=== PATIENT | male | born 1960 | race Caucasian/White ===

== ENCOUNTER 2018-05-20 12:25 | Emergency (ER) | payer SELFPAY ==
[2018-05-20 12:26] VITALS: BP 142/94; PULSE 69; RESP 16; TEMP 36.9; O2SAT 97; BMI 26.2
--- OUTSIDE RECORDS SUMMARY | 2018-05-20 12:59 | XMS RPT_ITS | Summary of Care ---
:1960 Demographics Address [address] [place] [address] [address] [place] [address] Mobile Phone Preferred Language Uruguayan Marital Status Unknown Restoration Affiliation Unknown Race Unknown Ethnic Group Unknown Author Organization [facility] Address [address] [place] [address] Care Team Providers Name Role Phone No, Physician Primary Care Provider Unavailable Reason for Visit Reason Comments Knee Pain left knee x 2 days. States its from his Gout. Said he normally is fine if he watches what he eats but he ate too much meat this week. Encounter Details Date Type Department Care Team Description 04/01/[address] [facility] Urgent Inocencia Das Acute idiopathic gout Care Bing Stratton MD of left knee (Primary [address]) [place], [place] [id number] Allergies Active Allergy Reactions Severity Noted Date Comments Penicillins Anaphylaxis High 03/27/2018 as of this encounter Medications Prescription Sig. Disp. Refills Start Date End Date Status clindamycin (CLEOCIN) Take 1 (one) 30 capsule 0 03/27/2018 04/06/2018 Active 300 MG capsule (300 capsuleIndications: mg total) by Lymphadenopathy of head mouth 3 and neck (three) times a day for 10 days. predniSONE (DELTASONE) 60 mg daily x 15 tablet 0 04/01/2018 04/08/2018 Active 20 MG 3 days, then tabletIndications: 40 mg daily x Acute idiopathic gout 2 days, then of left knee 20 mg daily x 2 days. acetaminophen-codeine Take 1 (one) 6 tablet 0 04/01/2018 04/02/2018 Active (TYLENOL #3) 300-30 mg tablet by per tabletIndications: mouth every 4 Acute idiopathic gout (four) hours of left knee as needed for pain 1 day supply. as of this encounter Social History Tobacco Use Types Packs/Day Years Used Date Former Smoker Cigarettes 2.5 Quit: 03/27/1984 Smokeless Tobacco: Never Used Alcohol Use Drinks/Week oz/Week Comments No Sex Assigned at Date Recorded Not on file as of this encounter Last Filed Vital Signs Vital Sign Reading Time Taken Blood Pressure 149/93 04/01/2018 10:23 AM EDT Pulse 67 04/01/2018 10:23 AM EDT Temperature 36.8 ??C (98.3 ??F) 04/01/2018 10:23 AM EDT Respiratory Rate 16 04/01/2018 10:23 AM EDT Oxygen Saturation 95% 04/01/2018 10:23 AM EDT Inhaled Oxygen Concentration - - Weight 90.7 kg (200 lb) 04/01/2018 10:23 AM EDT Height 182.9 cm (6') 04/01/2018 10:23 AM EDT Body Mass Index 27.12 04/01/2018 10:23 AM EDT in this encounter Instructions Patient Instructions - Inocencia Das MD - 04/01/2018 11:16 AM EDT Formatting of this note may be different from the original. Worse to ER. Need PCPGout: Care Instructions Your Care Instructions Gout is a form of arthritis caused by a buildup of uric acid crystals in a joint. It causes sudden attacks of pain, swelling, redness, and stiffness, usually in one joint, especially the big toe. Gout usually comes on without a cause. But it can be brought on by drinking alcohol (especially beer) or eating seafood and red meat. Taking certain medicines, such as diuretics or aspirin, also can bring on an attack of gout. Taking your medicines as prescribed and following up with your doctor regularly can help you avoid gout attacks in the future. Follow-up care is a zhu part of your treatment and safety. Be sure to make and go to all appointments, and call your doctor if you are having problems. It's also a good idea to know your test results and keep a list of the medicines you take. How can you care for yourself at home? ?? If the joint is swollen, put ice or a cold pack on the area for 10 to 20 minutes at a time. Put athin cloth between the ice and your skin. ?? Prop up the sore limb on a pillow when you ice it or anytime you sit or lie down during the next 3 days. Try to keep it above the level of your heart. This will help reduce swelling. ?? Rest sore joints. Avoid activities that put weight or strain on the joints for a few days. Take short rest breaks from your regular activities during the day. ?? Take your medicines exactly as prescribed. Call your doctor if you think you are having a problemwith your medicine. ?? Take pain medicines exactly as directed. ?? If the doctor gave you a prescription medicine for pain, take it as prescribed. ?? If you are not taking a prescription pain medicine, ask your doctor if you can take an cqut-ghw-fqkjbyn medicine. ?? Eat less seafood and red meat. ?? Check with your doctor before drinking alcohol. ?? Losing weight, if you are overweight, may help reduce attacks of gout. But do not go on a crash diet. Losing a lot of weight in a short amount of time can cause a gout attack. When should you call for help? Call your doctor now or seek immediate medical care if: ? ?? You have a fever. ? ?? The joint is so painful you cannot use it. ? ?? You have sudden, unexplained swelling, redness, warmth, or severe pain in one or more joints. ?Watch closely for changes in your health, and be sure to contact your doctor if : ? ?? You have joint pain. ? ?? Your symptoms get worse or are not improving after 2 or 3 days. Where can you learn more? Log into your personal health record on [email or web address] and enter E531 in the Education box to learn more about Gout: Care Instructions. Current as of: June 21, 2017 Content Version: 11.6 ?? 4912-6054 [employer]. Care instructions adapted under license by your healthcare professional. If you have questions about a medical condition or this instruction, always ask your healthcare professional. [employer] disclaims any warranty or liability for your use of this information. Purine-Restricted Diet: Care Instructions Your Care Instructions Purines are substances that are found in some foods. Your body turns purines into uric acid. High levels of uric acid can cause gout, which is a form of arthritis that causes pain and inflammation in joints. You may be able to help control the amount of uric acid in your body by limiting high-purine foods in your diet. Follow-up care is a zhu part of your treatment and safety. Be sure to make and go to all appointments, and call your doctor if you are having problems. It's also a good idea to know your test results and keep a list of the medicines you take. How can you care for yourself at home? ?? Plan your meals and snacks around foods that are low in purines and are safe for you to eat. These foods include: ?? Green vegetables and tomatoes. ?? Fruits. ?? Whole-grain breads, rice, and cereals. ?? Eggs, peanut butter, and nuts. ?? Low-fat milk, cheese, and other milk products. ?? Popcorn. ?? Gelatin desserts, chocolate, cocoa, and cakes and sweets, in small amounts. ?? You can eat certain foods that are medium-high in purines, but eat them only once in a while. These foods include: ?? Legumes, such as dried beans and dried peas. You can have 1 cup cooked legumes each day. ?? Asparagus, cauliflower, spinach, mushrooms, and green peas. ?? Fish and seafood (other than very high-purine seafood). ?? Oatmeal, wheat bran, and wheat germ. ?? Limit very high-purine foods, including: ?? Organ meats, such as liver, kidneys, sweetbreads, and brains. ?? Meats, including england, beef, pork, and hooper. ?? Game meats and any other meats in large amounts. ?? Anchovies, sardines, clemente, mackerel, and scallops. ?? Gravy. ?? Beer. Where can you learn more? Log into your personal health record on [email or web address] and enter F448 in the Education box to learn more about Purine-Restricted Diet: Care Instructions. Current as of: January 21, 2017 Content Version: 11.6 ?? 0810-8720 [employer]. Care instructions adapted under license by your healthcare professional. If you have questions about a medical condition or this instruction, always ask your healthcare professional. [employer] disclaims any warranty or liability for your use of this information. in this encounter Progress Notes Inocencia Das MD - 04/01/2018 11:00 AM EDTFormatting of this note may be different from the original. PATIENT NAME: Maximo Hobbs [facility] [address] [facility] [address] : 1960 DATE OF VISIT: 04/01/2018 #: [id number] PROVIDER: Inocencia Das MD Chief Complaint Patient presents with ??? Knee Pain left knee x 2 days. States its from his Gout. Said he normally is fine if he watches what he eats but he ate too much meat this week. SUBJECTIVE 58 y.o. male presents Knee Pain (left knee x 2 days. States its from his Gout. Said he normally is fine if he watches what he eats but he ate too much meat this week. ) Gout attack left knee - started 2 days ago. Feels heat in it. H/o same ten times in past. Ate a lot of meat this week. Took no meds - in motel and did not have any. No ice. Knee Pain The incident occurred 2 days ago. Incident location: visiting for work from [facility] , was in motel last pm. 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 There was no injury mechanism. The pain is present in the left knee. Quality: threobbing. The pain is at a severity of 10/10. The pain is severe. The pain has been constant since onset. Pertinent negatives include no numbness. He reports noforeign bodies present. The symptoms are aggravated by movement, palpation and weight bearing. He has tried nothing for the symptoms. MEDICAL ISSUES Past Medical History: Diagnosis Date ??? Gout There is no problem list on file for this patient. SOCIAL HISTORY Social History Social History ??? Marital status: Spouse name: N/A ??? Number of children: N/A ??? Years of education: N/A Occupational History ??? Not on file. Social History Main Topics ??? Smoking status: Former Smoker Packs/day: 2.50 Types: Cigarettes Quit date: 03/27/1984 ??? Smokeless tobacco: Never Used ??? Alcohol use No ??? Drug use: Yes Types: Marijuana ??? Sexual activity: Not on file Other Topics Concern ??? Not on file Social History Narrative ??? No narrative on file FAMILY HISTORY History reviewed. No pertinent family history. REVIEW OF SYSTEMS Review of Systems Constitutional: Negative for chills and fever. HENT: Negative for sore throat. Respiratory: Negative for shortness of breath. Cardiovascular: Negative for chest pain. Gastrointestinal: Negative for abdominal pain, diarrhea, nausea and vomiting. Genitourinary: Nocturia - rare Musculoskeletal: Positive for joint swelling. Neurological: Negative for weakness and numbness. MEDICATIONS PRIOR TO VISIT Current Outpatient Prescriptions on File Prior to Visit Medication Sig Dispense Refill ??? clindamycin (CLEOCIN) 300 MG capsule Take 1 (one) capsule (300 mg total) by mouth 3 (three) times a day for 10 days. 30 capsule 0 No current facility-administered medications on file prior to visit. ALLERGIES/INTOLERANCES Allergies Allergen Reactions ??? Penicillins Anaphylaxis OBJECTIVE Vitals: 04/01/18 1023 BP: (!) 149/93 Temp: 98.3 ??F (36.8 ??C) Pulse: 67 Resp: 16 SpO2: 95% Body mass index is 27.12 kg/m??. 90.7 kg (200 lb) 6' No LMP for male patient. Physical Exam Constitutional: He appears well-developed and well-nourished. HENT: Head: Normocephalic and atraumatic. Eyes: Conjunctivae are normal. No scleral icterus. Neck: Large right ant cervical lymph node Cardiovascular: Normal rate and regular rhythm. Pulmonary/Chest: Effort normal and breath sounds normal. Musculoskeletal: Left knee below patella is red, warm. Not really swollen Lymphadenopathy: He has cervical adenopathy. Do not feel this is infection - pt says it is just like his gout PROCEDURE Procedures Results No results found for this or any previous visit (from the past 168 hour(s)). ASSESSMENT/PLAN (expressed as patient instructions): No diagnosis found. No Follow-up on file. ADDITIONAL CLINICAL COMMENTS ORDERS PLACED THIS VISIT No orders of the defined types were placed in this encounter. MEDICATION LIST AT END OF VISIT Current Outpatient Prescriptions Medication Sig Dispense Refill ??? clindamycin (CLEOCIN) 300 MG capsule Take 1 (one) capsule (300 mg total) by mouth 3 (three) times a day for 10 days. 30 capsule 0 No current facility-administered medications for this visit. Ashley Billings, TECHNOLOGIST - 04/01/2018 10:21 AM EDTleft knee x 2 days. States its from his Gout. Said he normally is fine if he watches what he eats but he ate too much meat this week.in this encounter Plan of Treatment Health Maintenance Due Date Last Done Comments COLONOSCOPY 1960 HEPATITIS C SCREENING 1960 TETANUS EVERY 10 YR 1960 SEQUENTIAL INFLUENZA VACCINE (#1) 2018 as of this encounter Visit Diagnoses Diagnosis Acute idiopathic gout of left knee - Primary
--- OUTSIDE RECORDS SUMMARY | 2018-05-20 12:59 | XMS RPT_ITS ---
:1960 Author Organization [facility] Care Team Providers Name Role Phone Thien Rodriguez Attending Unavailable Primay Care Physicia, No Primary Care Unavailable NO, PHYSICIAN Primary Care Unavailable LUISITO WEBER Attending Unavailable NO, PHYSICIAN Primary Care Unavailable JANET SALGADO Attending Unavailable Terry Angeles Admitting Unavailable Terry Angeles Attending Unavailable No Doctor Assigned, Nodr Primary Care Unavailable No Doctor Assigned, Nodr Primary Care Unavailable Terry Angeles Admitting Unavailable Terry Angeles Attending Unavailable PROBLEMS PROBLEMS DATE TYPE CONDITION / CODE ATTENDING STATUS SOURCE 04/01/2018 Admitting Idiopathic gout, JANET SALGADO Active [facility] diagnosis left knee / ALMA[facility] Three Repository M10.062(ICD-10) 03/27/2018 Admitting Generalized LUISITO WEBER Active [facility] diagnosis enlarged lymph ARIADNA Crane Repository nodes / R59.1(ICD-10) PROCEDURES PROCEDURES No Procedure Records FoundRESULTS RESULTS No Result Records FoundALLERGIES ALLERGIES DATE TYPE / NAME / CODE REACTION SEVERITY SOURCE CODE 05/20/2018 Drug Penicillins/F0010 Unknown Unknown Jen Allergy/41 18797(RXNORM) Community [id number]([facility]MED CT) Repository 03/27/2018 Drug PENICILLINS Anaphylaxis High [facility] Class/4195 Three Repository 79839([facility] ED CT) Drug/74350 ampicillin [id number] [facility]) System Repository Drug/36647 penicillins [id number] [facility]) System Repository ENCOUNTERS ENCOUNTERS ADMIT/DISCHARGE ACCOUNT NUMBER ADMITTING ENCOUNTER LOCATION SOURCE CLASS 05/20/2018 [id number] Emergency [facility] ding:ED Repository 05/19/2018 [id number] [place], Ambulatory [facility] ding:SH.[facility] Repository 04/05/2018/04/05/20 [id number] [place], Ambulatory [facility] [address] [facility] ding:SH.[facility] Repository 04/05/2018 [id number] Ambulatory [address] [place] [address] Repository 04/01/2018/04/01/20 [id number] Ambulatory Building:[place] [address] Three Repository 03/27/2018/03/27/20 [id number] Ambulatory Building:[place] [address] Three Repository PAYERS PAYERS ENCOUNTER GUARANTOR PAYER SUBSCRIBER SOURCE 05/20/2018 TIFFANIE [id number] [facility]:SELF PAY [facility] [address]5966Ocp: 727) Number: Effective Repository [phone] () Date:2018-05-20 05/19/2018 TIFFANIE AGUAYODOB: Primary TIFFANIE AGUAYODOB: [facility] [id number] Insurance:Self [id number] [facility] PayPolicy Number: [address] [facility] System UNIT Effective [place] Repository [address] [place] [address] Date:2018-05-[address] [place] [address]Ybr: [phone] [phone]: () Name:Self Pay [phone] () () 04/05/2018 TIFFANIE AGUAYODOB: Primary TIFFANIE AGUAYODOB: [facility] [id number] Insurance:Self [id number] [facility] PayPolicy Number: [address] [facility] System UNIT Effective [place] Repository [address] [place] [address] Date:2018-04-[address] [place] [address]Xzx: [phone] [phone]: () Name:Self Pay [phone] () (WP) 04/05/2018 TIFFANIE AGUAYODOB: Primary TIFFANIE GOLDENDOB: [place] [id number] Insurance:Self [id number] [facility] PayPolic Number: [facility] Repository UNIT Effective Date:[address] Name:[address] [address]Opb: [phone]: () [phone] ()
--- OUTSIDE RECORDS SUMMARY | 2018-05-20 12:59 | XMS RPT_ITS | Summary of Care ---
:1960 Author Organization [facility] Address [address] [place] [address] Care Team Providers Name Role Phone No, Physician Primary Care Provider Unavailable Reason for Referral Evaluate and Treat (Urgent) Status Reason Specialty Diagnoses / Referred By Referred To Procedures Contact Contact Pending Specialty Otolaryngology Diagnoses Lymphadenopathy of head and neck Bridgette Cummings Andrew Review Services Farhana Machado Sr., Required/MD rajesh Pineda'rema [facility] CLINICAL NURSE REVIEWER [address] [place] [phone] Phone: Fax: Reason for Visit Reason Comments Adenopathy Encounter Details Date Type Department Care Team Description 03/27/2018 Office Visit [facility] Farhana Cummings Lymphadenopathy of head Care Bing Araya CNP and neck (Primary Dx) [address] [place] [phone] [id number] Allergies Active Allergy Reactions Severity Noted Date Comments Penicillins Anaphylaxis High 03/27/2018 as of this encounter Medications Prescription Sig. Disp. Refills Start Date End Date Status clindamycin (CLEOCIN) Take 1 (one) 30 capsule 0 03/27/2018 04/06/2018 Active 300 MG capsule (300 capsuleIndications: mg total) by Lymphadenopathy of head mouth 3 and neck (three) times a day for 10 days. as of this encounter Social History Tobacco Use Types Packs/Day Years Used Date Former Smoker Quit: 03/27/1984 Smokeless Tobacco: Never Used Alcohol Use Drinks/Week oz/Week Comments No Sex Assigned at Date Recorded Not on file as of this encounter Last Filed Vital Signs Vital Sign Reading Time Taken Blood Pressure 165/72 03/27/2018 6:46 PM EDT Pulse 68 03/27/2018 6:46 PM EDT Temperature 36.6 ??C (97.9 ??F) 03/27/2018 6:46 PM EDT Respiratory Rate 16 03/27/2018 6:46 PM EDT Oxygen Saturation 97% 03/27/2018 6:46 PM EDT Inhaled Oxygen Concentration - - Weight 91.6 kg (202 lb) 03/27/2018 6:46 PM EDT Height 185.4 cm (6' 1) 03/27/2018 6:46 PM EDT Body Mass Index 26.65 03/27/2018 6:46 PM EDT in this encounter Instructions Patient Instructions - Farhana Cummings CNP - 03/27/2018 7:20 PM EDT Formatting of this note may be different from the original. Swollen Lymph Nodes: Care Instructions Your Care Instructions Lymph nodes are small, eddy-shaped glands throughout the body. They help your body fight germs and infections. Lymph nodes often swell when there is a problem such as an injury, infection, or tumor. ?? The nodes in your neck, under your chin, or behind your ears may swell when you have a cold or sore throat. ?? An injury or infection in a leg or foot can make the nodes in your groin swell. ?? Sometimes medicine can make lymph nodes swell, but this is rare. Treatment depends on what caused your nodes to swell. Usually the nodes return to normal size without a problem. Follow-up care is a zhu part of your treatment and safety. Be sure to make and go to all appointments, and call your doctor if you are having problems. It's also a good idea to know your test results and keep a list of the medicines you take. How can you care for yourself at home? ?? Take your medicines exactly as prescribed. Call your doctor if you think you are having a problemwith your medicine. ?? Avoid irritation. ?? Do not squeeze or pick at the lump. ?? Do not stick a needle in it. ?? Prevent infection. Do not squeeze, drain, or puncture a painful lump. Doing this can irritate or inflame the lump, push any existing infection deeper into the skin, or cause severe bleeding. ?? Get extra rest. Slow down just a little from your usual routine. ?? Drink plenty of fluids, enough so that your urine is light yellow or clear like water. If you have kidney, heart, or liver disease and have to limit fluids , talk with your doctor before you increasethe amount of fluids you drink. ?? Take an urux-iik-qgkidmx pain medicine, such as acetaminophen (Tylenol), ibuprofen (Advil, Motrin), or naproxen (Aleve). Read and follow all instructions on the label. ?? Do not take two or more pain medicines at the same time unless the doctor told you to. Many pain medicines have acetaminophen, which is Tylenol. Too much acetaminophen (Tylenol) can be harmful. When should you call for help? Call your doctor now or seek immediate medical care if: ? ?? You have worse symptoms of infection, such as: ?? Increased pain, swelling, warmth, or redness. ?? Red streaks leading from the area. ?? Pus draining from the area. ?? A fever. ?Watch closely for changes in your health, and be sure to contact your doctor if : ? ?? Your lymph nodes do not get smaller or do not return to normal. ? ?? You do not get better as expected. Where can you learn more? Log into your personal health record on [email or web address] and enter A919 in the Education box to learn more about Swollen Lymph Nodes: Care Instructions. Current as of: July 30, 2017 Content Version: 11.6 ?? [id number] [employer]. Care instructions adapted under license by your healthcare professional. If you have questions about a medical condition or this instruction, always ask your healthcare professional. [employer] disclaims any warranty or liability for your use of this information. Follow up ENT. PCP List.in this encounter Progress Notes Farhana Cummings CNP - 03/27/2018 7:06 PM EDTFormatting of this note may be different from the original. PATIENT NAME: Maximo Hobbs [facility] [address] [place] [id number] : 1960 DATE OF VISIT: 03/27/2018 #: [id number] PROVIDER: Farhana Cummings CNP Chief Complaint Patient presents with ??? Adenopathy SUBJECTIVE 58 y.o. male presents Adenopathy Complaint of large swollen tender lymph node right side of neck. Was given 2 different antibiotic for seven days without relief of symptoms. Recently had URI before the lymph node appeared 2 weeks ago.Client is here from [place]. Request in referral to ENT. MEDICAL ISSUES No past medical history on file. There is no problem list on file for this patient. SOCIAL HISTORY Social History Social History ??? Marital status: Spouse name: N/A ??? Number of children: N/A ??? Years of education: N/A Occupational History ??? Not on file. Social History Main Topics ??? Smoking status: Former Smoker Quit date: 03/27/1984 ??? Smokeless tobacco: Never Used ??? Alcohol use No ??? Drug use: No ??? Sexual activity: Not on file Other Topics Concern ??? Not on file Social History Narrative ??? No narrative on file FAMILY HISTORY No family history on file. REVIEW OF SYSTEMS Review of Systems Constitutional: Negative for activity change, appetite change, chills, diaphoresis, fatigue, fever and unexpected weight change. HENT: Negative for congestion, dental problem, ear pain, sore throat and trouble swallowing. Respiratory: Negative for cough, chest tightness, shortness of breath and wheezing. Cardiovascular: Negative for chest pain. Skin: Negative. MEDICATIONS PRIOR TO VISIT No current outpatient prescriptions on file prior to visit. No current facility-administered medications on file prior to visit. ALLERGIES/INTOLERANCES Allergies Allergen Reactions ??? Penicillins Anaphylaxis OBJECTIVE BP (!) 165/72 Pulse 68 Temp 97.9 ??F (36.6 ??C) Resp 16 Ht 6' 1 Wt 91.6 kg (202 lb) SpO2 97% BMI 26.65 kg/m?? Physical Exam Constitutional: He is oriented to person, place, and time. He appears well- developed and well-nourished. HENT: Head: Normocephalic and atraumatic. Right Ear: Tympanic membrane and ear canal normal. Left Ear: Tympanic membrane and ear canal normal. Nose: Nose normal. Mouth/Throat: Uvula is midline and mucous membranes are normal. Neck: Trachea normal. Neck supple. No thyromegaly present. Enlarged submandibular lymph node or parotid swelling. Cardiovascular: Normal rate and regular rhythm. Pulmonary/Chest: Effort normal and breath sounds normal. Lymphadenopathy: He has cervical adenopathy. Neurological: He is alert and oriented to person, place, and time. Skin: Skin is warm and dry. Psychiatric: He has a normal mood and affect. Nursing note and vitals reviewed. PROCEDURE Procedures Results No results found for this or any previous visit (from the past 168 hour(s)). ASSESSMENT/PLAN (expressed as patient instructions): SNOMED CT(R) 1. Lymphadenopathy of head and neck HEAD AND NECK LYMPHADENOPATHY clindamycin ( CLEOCIN) 300 MG capsule Ambulatory referral to ENT No Follow-up on file. ADDITIONAL CLINICAL COMMENTS No notes on file ORDERS PLACED THIS VISIT Orders Placed This Encounter Procedures ??? Ambulatory referral to ENT MEDICATION LIST AT END OF VISIT Current Outpatient Prescriptions Medication Sig Dispense Refill ??? clindamycin (CLEOCIN) 300 MG capsule Take 1 (one) capsule (300 mg total) by mouth 3 (three) times a day for 10 days. 30 capsule 0 No current facility-administered medications for this visit. Cayla Chavez LPN - 03/27/2018 6:56 PM EDTRight side swollen glands clarithromycin 500mg Given Then 18 cipro 500mg Still having swollen glandsin this encounter Plan of Treatment Scheduled Referrals Name Priority Associated Diagnoses Order Schedule Ambulatory referral to Routine Lymphadenopathy of head and Expected: 2017, ENT neck Expires: 03/27/2019 Health Maintenance Due Date Last Done Comments COLONOSCOPY 1960 HEPATITIS C SCREENING 1960 TETANUS EVERY 10 YR 1960 SEQUENTIAL INFLUENZA VACCINE (#1) 2018 as of this encounter Visit Diagnoses Diagnosis Lymphadenopathy of head and neck - Primary
[2018-05-20] MEDS: Triamcinolone Acetonide 40 MG/ML Vial 80 MG IM (13:12)
--- NOTE | 2018-05-20 13:25 | RAD_ITS ---
STUDY: X-RAY - RIGHT FOOT CLINICAL: Male, 58 years old. Right foot pain. No known injury. TECHNIQUE: 3 view(s) of the foot. COMPARISON: None. FINDINGS: Normal talus, calcaneus, and tarsal bones. Normal visualized subtalar, talonavicular, calcaneocuboid, tarsal and tarsometatarsal articulations. Normal metatarsi. Normal metatarsophalangeal joint of the great toe. Normal tibial and fibular sesamoid bones. Normal interphalangeal joint of the great toe. Normal phalanges of the great toe. Normal second through fifth metatarsophalangeal joints. Normal interphalangeal joints and phalanges of the lesser toes. The soft tissue structures are unremarkable. RAD/Foot min 3 Views IMPRESSION: No significant abnormality. Electronically Signed: Chris Bess MD at 14:24 EDT , Service support ,
[2018-05-20 13:29] LABS: Absolute Lymphocyte Count 1.02 X10^3/ul (0.83-4.51); Absolute Neutrophil Count 7.3 X10^3/uL (2.0-7.7); Basophil# 0.02 X10^3/uL; Basophil% 0.2 % (0-1); Eosinophils% 1.1 % (0-5); Hemoglobin 14.2 g/dl (13.0-16.5); Lymphocyte # 1.02 X10^3/ul (4.0); Lymphocyte % 11.1 % (19-41); Mean Corp Hgb Conc 33.8 g/gl (32-36); Mean Corpuscular Hgb 30.2 pg (27.0-32.0); Mean Corpuscular Volume 89.4 fL (80-94); Monocyte# 0.66 X10^3/uL; Monocyte% 7.2 % (0-10); Neutrophil # 7.34 X10^3/uL (2.7-7.7); Neutrophil % 80.3 % (47-70); POSITIVE COUNT NO; POSITIVE DIFFERENTIAL NO; POSITIVE MORPHOLOGY NO; Platelet Count 244 K/mm3 (150-450); White Blood Count 9.2 K/mm3 (4.4-11.0)
[2018-05-20 13:43] LABS: Anion Gap 7 (5-15); BUN 13 mg/dL (7-18); BUN/Creat Ratio 12.6 RATIO (10-20); Calcium,Total 8.8 mg/dL (8.5-10.1); Chloride 103 mmol/L (98-107); Creatinine, Serum 1.03 mg/dL (0.70-1.30); EST Glomerular Filtration Rate 79 mL/min (>60); Est Glom Filt Rate - Afr Amer 95 mL/min (>60); Glucose 110 mg/dL (74-106); Potassium 4.1 mmol/L (3.5-5.1); Sodium Level 140 mmol/L (136-145)
--- NOTE | 2018-05-20 14:13 | ED.DCSUM_ITS ---
- ER Visit Summary Date of Service: 05/20/18 Chief Complaint: Right foot pain and swelling History of Present Illness: The patient is a 58 M who states he has a history of gout. 3 weeks ago he had a gout attack involving the left knee. He went to another emergency department twice and was not happy he did not receive colchicine and states he was given prednisone which did not do as good of job. He states that a week ago began to have pain in the right foot and now is having pain in the right first toe/forefoot. He notes redness and heat. States it feels exactly like his gout. Significant other states that he has been eating lots of meats though he is not sure he agrees with this. Physical Examination: Gen: Well-nourished well-developed Head: Normocephalic atraumatic Eyes: Perrl EOMI ENT: TMs clear no rhinorrhea moist mucous membranes Neck: Supple no lymphadenopathy no JVD nontender CVS: Regular rate rhythm no murmurs normal S1-S2 Respiratory: No distress clear to auscultation bilaterally chest nontender Abdomen: Soft nontender nondistended normal bowel sounds no masses Back: Nontender Extremity: Right foot first MTP joint is red swollen erythematous. There is no lymphangitic streaking. No petechial-like rash. Neurovascular intact. Painful range of motion. Skin: Normal color no rash Neuro: alert orientated ?3 CN II-XII intact normal strength sensation reflexes gait cerebellar Psych: Normal affect normal mood Test Results: Creatinine is normal. White count is normal. Foot x-rays are negative for tophi. Emergency Department Course and Treatment: Patient received a dose of Kenalog. I am going to write him for a dose of colchicine here and a dose and follow-up as well as scheduled ibuprofen and Hia[place]see. He is to follow-up with primary care. Impression: 1. Right foot gout attack This note was generated with [employer] dictation software. It may contain incorrect words, spelling, and punctuation that were not noted in review of the chart prior to signing ED Disposition - Plan for ED Patient: Disposition: Home or Assisted Living Chief Complaint: Lower Extremity Injury Instructions: What Is Gout?, Treating Gout Attacks Prescriptions: Hydrocodone Bitart/Apap 5-325 [H[place] 5MG-325MG] 1 tab PO Q6H PRN PRN 3 Days #10 tab PRN Reason: Pain Colchicine 0.6 mg PO X1 #1 cap Ibuprofen [Motrin] 800 mg PO TID PRN PRN #20 tab PRN Reason: Pain Referrals: Fast,Junie, DO [NON-STAFF] - 3-5 Days if not improving
[2018-05-20 14:59] VITALS: BP 154/90; PULSE 87; RESP 18; TEMP 36.3; O2SAT 100
== END 2018-05-20 15:08 | disposition home or self-care (01) ==
PROVIDERS: Emergency Provider Emergency Medicine
DX: M10.9 Gout, unspecified (principal); Z87.891 Personal history of nicotine dependence
CPT/HCPCS: 73630; 80048; 85025; 96372; 99284; A4216

== ENCOUNTER 2018-07-11 07:36 | Day surgery (SDC) | payer MEDICAID, SELFPAY ==
[2018-07-03 13:42] VITALS: BMI 26.2
[2018-07-11] VITALS (7 sets, daily range): BP systolic 117–137; BP diastolic 87–99; PULSE 71–77; RESP 14–16; TEMP 35.4–37.1; O2SAT 97–100; BMI 25.7
[2018-07-11] MEDS: Bupivacaine Mpf 0.5% 30 ML VIAL (09:21)
--- NOTE | 2018-07-11 10:07 | PCM.OPRPT ---
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 placement of LIJ portacath. 2. use of u/s. 3. use of fluoroscopy Type of Anesthesia:: MAC/Supplemental/Local Anesthesiologist: Tyler Amaral Special Medications: clindamycin 600 mg IV x 1 Estimated Blood Loss (mL): < 10 cc Fluids Replaced: 700 cc Description of Procedure: After informed consent was given, the patient was brought to the operating room and placed in the supine position. Appropriate time out protocol was followed. He was then given IV conscious sedation for anesthesia. The patient's bilateral upper chest and neck were then prepped with a surgical skin preparation and sterile surgical drapes were placed. After proper landmarks were ascertained, the skin at the upper left chest area was then infiltrated with 1:1 mixture of 1% lidocaine with epinephrine and 0.5% maricaine. A needle trocar was then inserted into the left internal jugular vein with ultrasound guidance-multiple vessels were viewed with u/s and the left IJ was chosen-- and there was good aspiration of venous blood. A wire was then threaded into the needle trocar and this was visualized under fluoroscopy to ensure that the wire was in the superior vena cava. Once this was done, then the needle trocar was removed. A small skin flor was made with an 11 blade knife at the wire entrance site. The dilator with the introducer sheath attached was then placed over the wire into the left internal jugular vein via the Seldinger technique and this was visualized under fluoroscopy. The dilator and sheath were in proper position as visualized by fluoroscopy. A subcutaneous pocket was then created caudad to the catheter insertion site. A transverse skin incision was made after the skin and subcutaneous tissues were infiltrated with local anesthetic. Blunt dissection was then used to create a space large enough for placement of the subcutaneous port. The catheter was then tunneled into the subcutaneous pocket. The wire and dilator were then removed. The catheter was then threaded into the introducer sheath and was positioned with its tip at the junction of the superior vena cava and the right atrium as visualized under fluoroscopy. The excess catheter was transected. The catheter was then attached to the subcutaneous port using manufacturers guidelines. The catheter was flushed with a heparin saline mixture prior to placement. Hemostasis was carefully controlled with electrocautery. The port was sutured to the subcutaneous fascia using 3-0 PDS suture at two sites. The port was then placed in the subcutaneous pocket and the sutures were ligated. The incision were reapproximated with interrupted subdermal 3-0 vicryl sutures. The skin was reapproximated with 3-0 nylon suture in a interrupted fashion. Steristrips were used for reinforcement of the skin closure at IJ insertion site and a sterile opsite dressings were applied. The patient tolerated the procedure well. Implants Used: [employer] PowerPort isp M.R.I. 6Fr Lot [id number] Grafts/Implants Used: [employer] PowerPort isp M.R.I. 6Fr Lot [id number] - Complications none
--- NOTE | 2018-07-11 10:19 | DCINST_ITS ---
Discharge Diet: No Restrictions Discharge Activity: May not drive while taking narcotic pain medications. May shower in (days): 5 - Keep port site clean and dry for 5 days okay to shower with Ziploc bag covering port site or just take a lower shower and sponge bath the upper body Lifting Restrictions: No lifting greater than 15 pounds with the left arm times 1 week Call your doctor if your incision/area has: Continuous Slow Oozing, Sudden Increased Bleeding, Increased Pain/ Swelling, Increased Redness, Foul Smelling Discharge, Swelling at the incision site Call your doctor if you observe: Fever of 101 or Higher Change Dressing in (Days):: 2 Remove Dressing in (days):: 5 - Want to recover as the permanent sutures are stiff and may catch on clothing until removed in 10 days Allergies/Adverse Reactions: Allergies Penicillins [PCN] Allergy (Severe, Verified 07/04/18 08:17) Anaphylaxis Medications to take at Discharge Zolpidem Tartrate [Ambien] 10 mg PO QHS PRN 06/21/18 Blue-Green Algae 8 tab PO DAILY 06/27/18 traMADol [Ultram (G)] 50 - 100 mg PO Q6H PRN PRN 2 Days #5 tablet 07/11/18 The following prescriptions were given: traMADol [Ultram (G)] 50 - 100 mg PO Q6H PRN PRN 2 Days #5 tablet PRN Reason: Pain Primary Care Physician: Care Physician,No Primary [Primary Care Provider] - Test Results: Test results from this visit will be discussed in further detail at your follow- up appointment, if applicable. Please Follow Up With: Liana Cortez MD - After 5:00/weekends call [phone] with any concerns When: Call for an appointment in 10 days for suture removal. Proposed Discharge Date: 07/11/18
--- NOTE | 2018-07-11 10:20 | RAD_ITS ---
STUDY: X-RAY CHEST REASON FOR EXAM: Male, 58 years old. Port placement. TECHNIQUE: Single AP portable view of the chest. COMPARISON: None. FINDINGS: A left-sided Port-A-Cath has been placed. The tip is at the junction of the superior vena cava and right atrium. The lungs are clear and expanded. Scattered calcified granulomas. There is no demonstrated pleural abnormality. Normal size heart. Normal mediastinum and judy. Normal visualized pulmonary arteries. Normal visualized aortic arch and descending thoracic aorta. Normal visualized thoracic spine. Normal visualized ribs, clavicles, and shoulders. There is no demonstrated abnormality of the visualized soft tissue structures of the upper abdomen. RAD/CXR for Line Placement IMPRESSION: The tip of the left jamari catheter is at the junction of the superior vena cava and right atrium. Electronically Signed: William Pineda MD at 10:34 EDT Tel [phone], Service support ,
== END 2018-07-11 12:31 | disposition home or self-care (01) ==
LOC: SDC 07:37 → AC 07:37
PROVIDERS: Referring Provider Surgery; Visit Provider Surgery
PROC: (CPT 36561; principal; 2018-07-11 08:45)
DX: Z45.2 Encounter for adjustment and management of vascular access device (principal); C09.9 Malignant neoplasm of tonsil, unspecified; F12.90 Cannabis use, unspecified, uncomplicated; Z87.891 Personal history of nicotine dependence
CPT/HCPCS: 00532; 36561; 71045; 77001; J7120

== ENCOUNTER 2018-07-13 07:02 | Day surgery (SDC) | payer MEDICAID, SELFPAY ==
[2018-07-03 13:42] VITALS: BMI 26.2
[2018-07-13] VITALS (7 sets, daily range): BP systolic 101–140; BP diastolic 68–92; PULSE 59–67; RESP 16; TEMP 36.8–37.1; O2SAT 97–99; BMI 26.4
--- NOTE | 2018-07-13 07:37 | PCM.HP.STD ---
History of Present Illness Date of Admission: 07/13/18 The patient is a 58 year old M with a history of right squamous cell oropharyngeal carcinoma presents for PEG tube. Patient has been having more difficulty swallowing has not been eating as much per the patient and his . Initially he did not really want the PEG tube but now he does understand that this is not to replace him being able to eat it is just a backup plan. And he is agreeable to proceed Past Medical History Medical History: Medical History (Last Reviewed 07/03/18 @ 13:40 by Ana Amos) Right neck mass excision 05/23/18 Allergies Penicillins [PCN] Allergy (Severe, Verified 07/04/18 08:17) Anaphylaxis tramadol Adverse Reaction (Verified 07/12/18 09:52) Other could not sleep Home Medications: Ambulatory Orders Medication Instructions Recorded Zolpidem Tartrate [Ambien] 10 mg PO QHS PRN 06/21/18 Blue-Green Algae 8 tab PO DAILY 06/27/18 Surgical History: Surgical History (Last Reviewed 07/03/18 @ 13:40 by Ana Amos) History of hand surgery Z98.890 1997 History of hernia repair Z98.890, Z87.19 1997, 2001, 06/20/09 (ABDOMINAL AND R INGUINAL) Smoking Status: Former smoker - *Family History Maternal Family History: Family History (Last Reviewed 06/28/18 @ 14:36 by Suzy Peter) Father Heart disease Mother Heart disease History Items: No pertinent history Review of Systems Constitutional: Denies: Chills, Fever HEENT: Reports: Difficulty Swallowing, Dysphasia Cardiovascular: Denies: Chest Pain Gastrointestinal: Denies: Abdominal Pain VTE Information - Inpt Only VTE Present on Admission: Yes VTE Mechan Device Prophylaxis: SCD's VTE Pharm Prophylaxis ordered?: No Reason prophylaxis not ordered:: Treatment Not Indicated Patient Problems: Active and Suspected Problems (Last Reviewed 07/03/18 @ 13:40 by Ana Amos) Oropharyngeal cancer (Acute) Educational circumstance (Acute) - Physical Exam General: Alert, Oriented x3, Cooperative, No apparent distress HEENT: Atraumatic Lungs: Normal air movement Cardiovascular: Regular rate Abdomen: Soft, Non Tender - No peritoneal signs, Non-Distended Extremities: No clubbing, No cyanosis, No edema Neurological: Cranial nerves II-XII grossly intact Psych/Mental Status: Normal Affect Assessment/Plan All Active Problems (Last Reviewed 07/03/18 @ 13:40 by Ana Amos) Oropharyngeal cancer (Acute) Educational circumstance (Acute) 58-year-old male with right squamous cell oropharyngeal carcinoma, odynophagia, malnutrition 1. Discussed the procedure of a PEG tube with the patient and his . Including but not limited to risk of bleeding, infection, injury to another organ (i.e. the colon), leaking around the PEG tube, unable to do the PEG tube due to mass in the throat being too large to need to refer to an IR for placement, and anesthesia. Patient and his had no further questions at this time. Liana Cortez M.D. Pager: [phone] [facility] [address] [place] [address], [address] [id number] Office: [phone]
--- NOTE | 2018-07-13 07:40 | HP.PCM_ITS ---
History of Present Illness Date of Admission: 07/13/18 The patient is a 58 year old M with a history of right squamous cell oropharyngeal carcinoma presents for PEG tube. Patient has been having more difficulty swallowing has not been eating as much per the patient and his . Initially he did not really want the PEG tube but now he does understand that this is not to replace him being able to eat it is just a backup plan. And he is agreeable to proceed Past Medical History Medical History: Medical History (Last Reviewed 07/03/18 @ 13:40 by Ana Amos) Right neck mass excision 05/23/18 Allergies Penicillins [PCN] Allergy (Severe, Verified 07/04/18 08:17) Anaphylaxis tramadol Adverse Reaction (Verified 07/12/18 09:52) Other could not sleep Home Medications: Ambulatory Orders Medication Instructions Recorded Zolpidem Tartrate [Ambien] 10 mg PO QHS PRN 06/21/18 Blue-Green Algae 8 tab PO DAILY 06/27/18 Surgical History: Surgical History (Last Reviewed 07/03/18 @ 13:40 by Ana Amos) History of hand surgery Z98.890 1997 History of hernia repair Z98.890, Z87.19 1997, 2001, 06/20/09 (ABDOMINAL AND R INGUINAL) Smoking Status: Former smoker - *Family History Maternal Family History: Family History (Last Reviewed 06/28/18 @ 14:36 by Suzy Peter) Father Heart disease Mother Heart disease History Items: No pertinent history Review of Systems Constitutional: Denies: Chills, Fever HEENT: Reports: Difficulty Swallowing, Dysphasia Cardiovascular: Denies: Chest Pain Gastrointestinal: Denies: Abdominal Pain VTE Information - Inpt Only VTE Present on Admission: Yes VTE Mechan Device Prophylaxis: SCD's VTE Pharm Prophylaxis ordered?: No Reason prophylaxis not ordered:: Treatment Not Indicated Patient Problems: Active and Suspected Problems (Last Reviewed 07/03/18 @ 13:40 by Ana Amos) Oropharyngeal cancer (Acute) Educational circumstance (Acute) - Physical Exam General: Alert, Oriented x3, Cooperative, No apparent distress HEENT: Atraumatic Lungs: Normal air movement Cardiovascular: Regular rate Abdomen: Soft, Non Tender - No peritoneal signs, Non-Distended Extremities: No clubbing, No cyanosis, No edema Neurological: Cranial nerves II-XII grossly intact Psych/Mental Status: Normal Affect Assessment/Plan All Active Problems (Last Reviewed 07/03/18 @ 13:40 by Ana Amos) Oropharyngeal cancer (Acute) Educational circumstance (Acute) 58-year-old male with right squamous cell oropharyngeal carcinoma, odynophagia, malnutrition 1. Discussed the procedure of a PEG tube with the patient and his . Including but not limited to risk of bleeding, infection, injury to another organ (i.e. the colon), leaking around the PEG tube, unable to do the PEG tube due to mass in the throat being too large to need to refer to an IR for placement, and anesthesia. Patient and his had no further questions at this time. Liana Cortez M.D. Pager: [phone] [facility] [address] [place] [address], [address] [place] [id number] Office: [phone]
--- NOTE | 2018-07-13 08:34 | OP.ENDO_ITS ---
Patient Name: Thom Hobbs Procedure Date: 07/13/2018 7:56 AM Date of : 1960 Age: 58 Procedure: Upper GI endoscopy Indications: Place PEG due to feeding difficulties secondary to oropharyngeal tumor Providers: Liana Cortez MD Referring MD: Liana Cortez MD Medicines: Monitored Anesthesia Care Complications: No immediate complications. Procedure: Pre-Anesthesia Assessment: - Prior to the procedure, a History and Physical was performed, and patient medications and allergies were reviewed. The patient's tolerance of previous anesthesia was also reviewed. The risks and benefits of the procedure and the sedation options and risks were discussed with the patient. All questions were answered, and informed consent was obtained. Prior Anticoagulants: The patient has taken no previous anticoagulant or antiplatelet agents. ASA Grade Assessment: II - A patient with mild systemic disease. After reviewing the risks and benefits, the patient was deemed in satisfactory condition to undergo the procedure. After obtaining informed consent, the endoscope was passed under direct vision. Throughout the procedure, the patient's blood pressure, pulse, and oxygen saturations were monitored continuously. The gastroscope was introduced through the mouth, and advanced to the pylorus. The upper GI endoscopy was accomplished without difficulty. There was good light reflex just left of midline in upper abdomen, with appropriate indention of the stomach with palpation of that spot. The abdomen was prepped and draped in the usual sterile fashion with chloroprep. lidocaine 1% was infiltrated in this area, 11 blade scalp was used to make an 1 cm horizontal incision in the skin. The gastroscope remained in the stomach to visualize the needle insertion and snare biopsy grasper was used to secure the guidewire. The scope and guidewire were slowly pulled out of the pt mouth and the 20 Fr. PEG was attached and pulled into place in the stomach. A picture was taken of the PEG in place. The skin bumper was secured at 3.5 cm. Antibiotic ointment was placed and the tube was cut to an appropriate length then the end cap was placed. The patient tolerated the procedure well. Scope In: 7:58:55 AM Scope Out: 8:16:29 AM Total Procedure Duration Time 0 hours 17 minutes 34 seconds Findings: The esophagus was normal. The stomach was normal. PEG placed at 3.5 cm at skin, picture taken. Impression: - Normal esophagus. - Normal stomach. - No specimens collected. - PEG placed Recommendation: - Please follow the post-PEG recommendations including: change dressing on top of bumper daily and clean site with soap and water daily and dry thoroughly. - Continue present medications. - Discharge patient to home. Procedure Code(s): --- Professional --- 99629, 52, Esophagogastroduodenoscopy, flexible, transoral; diagnostic, including collection of specimen(s) by brushing or washing, when performed (separate procedure) Diagnosis Code(s): --- Professional --- Z43.1, Encounter for attention to gastrostomy R63.3, Feeding difficulties D37.05, Neoplasm of uncertain behavior of pharynx CPT copyright 2017 [employer]. All rights reserved. The codes documented in this report are preliminary and upon manager global review may be revised to meet current compliance requirements. MD Liana Kaur MD 07/13/2018 8:33:57 AM This report has been signed electronically. Number of Addenda: 0 Note Initiated On: 07/13/2018 7:56 AM
== END 2018-07-13 10:33 | disposition home or self-care (01) ==
LOC: EN 07:02 → AC 07:03
PROVIDERS: Referring Provider Surgery; Visit Provider Surgery
PROC: 0DH64UZ Insertion of Feeding Device into Stomach, Percutaneous Endoscopic Approach (ICD-10-PCS; CPT 43246; principal; 2018-07-13 07:55)
DX: Z43.1 Encounter for attention to gastrostomy (principal); C10.9 Malignant neoplasm of oropharynx, unspecified; E46 Unspecified protein-calorie malnutrition; Z68.26 Body mass index [BMI] 26.0-26.9, adult; Z87.891 Personal history of nicotine dependence
CPT/HCPCS: 43246; J7120

== ENCOUNTER → 2018-07-19 10:14 | Outpatient (CLI) | payer MEDICAID, SELFPAY ==
[2018-07-03 13:42] VITALS: BMI 26.2
--- NOTE | 2018-07-19 10:20 | RAD_ITS ---
STUDY: SWALLOWING STUDY REASON FOR EXAM: Male, 58 years old. Dysphasia. History of tonsillar carcinoma and radiation therapy. TECHNIQUE: The examination was performed with Speech Pathology in attendance. Under fluoroscopic observation, the patient ingested thin barium, thick barium, barium pudding, and barium coated cracker. FLUOROSCOPY TIME: 1:40 minutes/seconds. 1621 images were obtained. RADIOLOGIST INVOLVEMENT: Radiologist was present and providing direct supervision. COMPARISON: None. FINDINGS: The following was observed during swallowing of the various mixtures of barium: Thin Barium: There was no evidence of aspiration or laryngeal penetration. Barium Pudding: There was no evidence of aspiration or laryngeal penetration. Barium Coated Cracker: There was no evidence of aspiration or laryngeal penetration. RAD/Swallowing Function w/Video IMPRESSION: Normal tailored barium swallow study. No evidence of increased risk for aspiration. The swallow study findings were discussed with the patient by the speech pathologist at the conclusion of the examination. Please see speech pathology report for more information and recommendations. Electronically Signed: William Pineda MD at 12:43 EST Tel [phone], Service support ,
--- NOTE | 2018-07-19 10:45 | SP.MBSS_ITS ---
PRIMARY / SECONDARY DIAGNOSIS: dysphagia (R13.10) REFERRING PHYSICIAN: Dr. 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 Patient reports initial odynophagia located on the right (prior location of excision), though this has improved, mild to moderate xerostomia, and occasional coughing and throat clearing that the Patient associates with mucus production following marijuana usage (reports he has stopped smoking following physician recommendations). The Patient denies any significant weight loss, denies any changes in appetite or early satiety, denies nausea, and denies any dysgeusia / hypogeusia / ageusia; further denies the presence of sialorrhea, denies globus sensation or substernal discomfort. the Patient does report a baseline tendency for bolus bolting (rapid ingestion without complete mastication), though this is likely associated with vocational idiosyncrasies and are likely easily managed. Patient denies any vocal changes. Patient has underwent recent dental work prior to chemoradiation (single tooth extraction), dentition otherwise functional, no odontalgia. Patient denies any fatigue, cognitive communication changes, or changes in physical functioning; completes all activities of daily living without difficulty, and was working full-time but is not been working since his diagnosis. SUPPLEMENTARY DYSPHAGIA ASSESSMENT RESULTS: Dysphagia Handicap Index (DHI): 23 (mild) Total Dysphagia Risk Score (TDRS): 12 ? intermediate risk (TDRS 10-18) Performance Status Scale for Head & Neck Cancer Patients (PSS-HN): 200/200 Sialorrhea Scoring Scale (SSS): 1/9 (dry, never drools) Reflux Symptom Index (RSI): 5 (RSI > 13 may be indicative of significant reflux) MEDICAL HISTORY: Squamous cell carcinoma involving the right tonsil and ipsilateral lymph nodes status post chemoradiation right neck mass excision (05/23/18) with resulting dysphagia requiring alternative means of nutrition via PEG tube (07/13/2018); status post hand surgery (1997), status post abdominal and right inguinal hernia repair (1997, 2001, 2008), former smoker. STUDY FINDINGS: Patient participated in a Modified Barium Swallow (MBS) study on 07/19/2018. Dr. Pineda was the radiologist present for this evaluation. This study was recorded in the lateral view and images were sent to PACs for storage. The following consistencies were presented to this patient for analysis of oropharyngeal swallow function: thin liquids, pudding, and a regular textured, Lou Doone cookie. Results of the MBS are as follows: PENETRATION / ASPIRATION SCALE (THAPA): 1 = does not enter airway 2 = enters airway/above vocal folds/ejected 3 = enters airway/above vocal folds/not ejected 4 = enters airway/contacts vocal folds/ejected 5 = enters airway/contacts vocal folds/not ejected 6 = enters airway/below vocal folds/ejected 7 = enters airway/below vocal folds/not ejected despite effort 8 = enters airway/below vocal folds/no effort PENETRATION / ASPIRATION SCALE (SCORE): Thin liquid - 5 mL tsp.: 1 Thin liquids via cup (single sip): 1 Thin liquids via cup (sequential swallows): 1 Thin liquids via cup (single sip): 1 Thin liquids via cup (single sip): 1 Thin liquids via cup (chin tuck): 1 Thin liquids via cup (chin tuck): 1 Pudding via spoon: 1 Regular textured cookie: 1 Thin liquids via cup (single sip): 1 Thin liquids via cup (single sip): 1 Thin liquids via cup (single sip): 2 Thin liquids via cup (single sip): 1 Thin liquids via cup (single sip): 1 IMPRESSION: DIAGNOSIS: mild oropharyngeal dysphagia (R13.12) Swallowing Performance Scale (PSP) score: 3 (mild dysphagia) ORAL PHASE CHARACTERIZED BY: LABIAL SEAL: no labial escape TONGUE CONTROL DURING BOLUS MANIPULATION: posterior escape of less than half of bolus BOLUS PREPARATION / MASTICATION: timely and efficient chewing and mashing BOLUS TRANSPORT / LINGUAL MOTION: brisk tongue motion ORAL RESIDUE: trace residue lining oral structures PHARYNGEAL PHASE CHARACTERIZED BY: INITIATION OF PHARYNGEAL SWALLOW: bolus head in valleculae at first hyoid excursion SOFT PALATE ELEVATION: no bolus between soft palate and pharyngeal wall LARYNGEAL ELEVATION: complete superior movement of thyroid cartilage with complete approximation of arytenoids cartilage to epiglottic petiole ANTERIOR HYOID EXCURSION: complete anterior movement EPIGLOTTIC MOVEMENT: complete epiglottic inversion LARYNGEAL VESTIBULE CLOSURE AT HEIGHT OF SWALLOW: complete laryngeal vestibule closure with no air/contrast in laryngeal vestibule PHARYNGEAL STRIPPING WAVE: pharyngeal stripping wave present / complete PHARYNGOESOPHAGEAL SEGMENT OPENING: complete distension and complete duration with no obstruction of flow TONGUE BASE RETRACTION: no contrast between tongue base and posterior pharyngeal wall PHARYNGEAL RESIDUE: intermittent collection of residue within or on pharyngeal structures ESOPHAGEAL PHASE CHARACTERIZED BY: ESOPHAGEAL BOLUS CLEARANCE IN THE UPRIGHT POSITION: could not view EFFECTS OF TREATMENT STRATEGIES ATTEMPTED: Chin tuck posture = ineffective Reduced bolus size = moderately effective DIET TEXTURE RECOMMENDATIONS: Will recommend a regular textured, thin liquid diet. 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 Oral preparatory phase unremarkable. Oral transitional phase marked by suboptimal lingual functioning with rather consistent premature posterior bolus loss typically extending to the vallecula and occasionally to the pyriform sinuses, increasing the Patients risk of penetration and aspiration. Pharyngeal phase overall functional, with findings lacking significance. All deficits ameliorated with bolus volume adjustments, adjustments in intake rate, and postural changes. No aspiration appreciated throughout trials, with transient penetration event not necessarily atypical for age matched peers. RECOMMENDATIONS: Recommend a repeat modified barium swallow study within 1-2 months post chemoradiation to further assess the Patients oropharyngeal swallow function and identify any post radiation changes in the oropharyngeal physiology, as the patient is at highr risk for continual changes and possible decline in swallow functioning / dysphagia severity throughout the chemoradiation intervention cycle; would benefit from continued monitoring and treatment plan adjustments as necessary. Will recommend an aggressive oral care program that includes pre-rinse use prior to water intake; routine oral care / denture care in the a.m., prior to oral intake, after oral intake, and prior to bed via toothbrush / swab / rinse; and frequent dental checkups post- irradiation. The Patient requires continued skilled speech-language intervention targeting diet texture management; training and implementation of recommended compensatory strategies; training and implementation of a home based prophylactic swallowing exercise program to promote the highest level of preserved post-irradiation swallow functioning; training and implementation of a home oral care protocol to reduce the effects of xerostomia and improve / maintain the integrity of the oral mucosa reducing the risk of aspiration related pulmonary complications; and Patient / caregiver education regarding vanessa and post-irradiation dysphagia and associated symptomology. ADDITIONAL COMMENTS/RECOMMENDATIONS: Results and recommendations were discussed with the Patient immediately following MBS completion, with the Patient verbalizing understanding and agreement with all recommendations and education provided. IMAGE COUNT: 1621 G-CODES: SWALLOWING G8996 Current Status: CI SWALLOWING G8997 Goal Status: CH SWALLOWING G8998 Discharge Status: CI Johnathan Riojas M.A., CCC-CLERICAL ASSOCIATE [facility] Speech-Language Pathology Department [email or web address]
== END ==
PROVIDERS: Referring Provider Student in an Organized Health Care Education/Training Program; Visit Provider Student in an Organized Health Care Education/Training Program
DX: R13.12 Dysphagia, oropharyngeal phase (principal)
CPT/HCPCS: 74230; 92611

== ENCOUNTER 2018-08-01 08:30 | Outpatient (RCR) | payer MEDICAID, SELFPAY ==
[2018-07-03 13:42] VITALS: BMI 26.2
== END 2018-08-11 23:59 ==
LOC: NS 08:30
PROVIDERS: Visit Provider Internal Medicine Medical Oncology
DX: C10.9 Malignant neoplasm of oropharynx, unspecified (principal); Z71.3 Dietary counseling and surveillance
CPT/HCPCS: 97803

== ENCOUNTER 2018-09-04 10:30 | Outpatient (RCR) | payer MEDICAID, SELFPAY ==
[2018-07-03 13:42] VITALS: BMI 26.2
[2018-08-30 10:14] VITALS: BMI 24.4
--- NOTE | 2019-05-11 14:52 | HP.SP.DC_ITS ---
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 07/19/2019 MBS revealed mild oropharyngeal dysphagia with shallow transient penetration of thin liquids. 11/27/2018 MBS revealed mild oropharyngeal dysphagia with shallow transient penetration of thin liquids. The Patient participated in intervention sessions consisting of diet texture management and training / implementation of recommended compensatory strategies; training and implementation of a home based prophylactic swallowing exercise program to promote the highest level of preserved post-irradiation swallow functioning; training and implementation of a home oral care protocol to reduce the effects of xerostomia and improve / maintain the integrity of the oral mucosa reducing the risk of aspiration related pulmonary complications; and Patient / caregiver education regarding vanessa and post-irradiation dysphagia and associated symptomology; and continual assessment of the cognitive communication profile throughout the chemoradiation. Will discharge from the skilled speech- language pathology caseload at this time, as all intervention goals have been achieved, though would gladly re-initiate intervention as needed moving forward. I would consider the Patient to be at higher risk for continual changes and possible decline in swallow functioning / dysphagia severity post irradiation (late effects of radiation fibrosis can occur upwards of 40 years post treatment); would benefit from continual monitoring and yearly follow up modified barium swallow studies for at least 5 years post irradiation.
== END 2018-09-04 19:00 | disposition home or self-care (01) ==
LOC: SP 10:30
PROVIDERS: Visit Provider Student in an Organized Health Care Education/Training Program
DX: C10.9 Malignant neoplasm of oropharynx, unspecified (principal); R13.10 Dysphagia, unspecified
CPT/HCPCS: 92526

== ENCOUNTER → 2018-11-27 13:25 | Outpatient (CLI) | payer MEDICAID, SELFPAY ==
[2018-07-03 13:42] VITALS: BMI 26.2
[2018-08-30 10:14] VITALS: BMI 24.4
--- NOTE | 2018-11-27 08:00 | PET_ITS ---
EXAMINATION: FDG PET CT INDICATIONS: 58-year-old male with reported history of head and neck carcinoma presenting for restaging examination. COMPARISON EXAMINATION: Previous FDG PET study dated 07/10/18. INDEX LESION SIZE SUV INTERPRETATION PREVIOUS: Right pharyngeal mucosal space, right lateral neck-right retropharyngeal space Demonstrate metabolic resolution on the current examination NEW: Bilateral upper lateral hemithorax pulmonary parenchyma, right-left upper lobes 14.7 mm largest (frame 245) 3.3 (max) Most consistent with post therapeutic inflammatory changes, short-term reevaluation with FDG PET CT imaging recommended NON-INDEX LESION SIZE SUV INTERPRETATION PERSISTENT: Right hemipelvis 2.7 compared to 1.7, 07/09/18 Most consistent with activated leukocytes associated with an inflammatory process PERSISTENT: Left lateral neck 2.1 compared to 1.8, 07/10/18 Quantitative criteria for viable neoplasm are not fulfilled TECHNIQUE: Following the intravenous administration of 15 mCi of F-18 deoxyglucose, multiplanar image acquisitions of the neck, chest, abdomen and pelvis to level of mid thigh, obtained at one hour post radiopharmaceutical administration contemporaneously interpreted with the current CT of the neck, chest, abdomen and pelvis to level of mid thigh, dated 11/27/18 via coregistration and previous FDG PET study dated 07/10/18 reveal: FINDINGS: 1. Newly identified increased glucose metabolism is manifest in the bilateral upper lateral hemithorax pulmonary parenchyma, right-left upper lobes. The calculated maximum standard uptake value is 3.3. The largest, most conspicuous metabolic, morphologic abnormality demonstrates a maximal axial diameter of approximately 14.7 mm (AP). Discussion with Dr. Nickolas Brody describes the radiation field for treatment of the patient?s known head and neck carcinoma included both locations. 2. Normal physiologic distribution of the radiopharmaceutical is apparent in the hepatic (3.1/3.2) and splenic parenchyma, both renal units, bladder and visualized intestinal tract. There is uniform distribution of the radiopharmaceutical concentration defined in the visualized cerebellar hemispheres and cerebral cortical structures.? Mild increased glucose metabolism remains apparent in the left lateral neck generating a current calculated maximum standard uptake value of 2.1 compared to 1.8 defined on the FDG PET study dated 07/10/18. Quantitative criteria for viable neoplasm are not fulfilled. An asymmetric increase in FDG concentration is persistently defined in right hemipelvis, which appears contiguous to a fluid-filled density. The calculated maximum standard uptake value is currently 2.7 compared to 1.7 defined on the FDG PET study dated 07/10/18. Previously identified right pharyngeal mucosal space, right lateral neck and right retropharyngeal carotid space hypermetabolic foci are not apparent on the current examination. Pertinent CT findings are as follows. CHEST: ABDOMEN AND PELVIS: SKELETAL: PET/PET/CT Tumor Base -Thigh Subs IMPRESSION: 1. Increased glucose concentration newly defined in the bilateral upper lateral hemithorax pulmonary parenchyma, right-left upper lobes is most consistent with post therapeutic change attributed to radiation therapeutic intervention. If a conservative approach is undertaken, repeat FDG PET CT imaging in 9-12 weeks is recommended to ensure stability, involution. 2. There is interim metabolic resolution of the prior defined right pharyngeal mucosal space, right lateral neck and right retropharyngeal carotid space hypermetabolic foci. 3. The increase in glucose metabolism persistently defined in the right lower anterior hemipelvis is most consistent with activated leukocytes associated with an inflammatory process. Clinical examination is recommended. 4. Mild increased FDG concentration persisting in the left lateral neck does not fulfill quantitative criteria for viable neoplasm. 5. Overall, compared to the prior FDG PET study dated 07/10/18, there is apparent current absence of defined viable neoplastic disease with an interim quantitative complete metabolic response relating to the previously defined right pharyngeal mucosal space and right lateral neck-right retropharyngeal carotid space hypermetabolic foci. Newly identified increased glucose metabolism manifest in the bilateral upper lateral lung zones likely represents post therapeutic changes attributed to radiation therapeutic intervention as defined. Electronic Signature Samm Cardoso D.O. Electronically Signed: Samm Cardoso DO at 23:18 EDT Tel , Service support ,
--- NOTE | 2018-11-27 13:15 | SP.MBSS_ITS ---
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 Nickolas Brody CURRENT DIET: regular textures, thin liquids, PEG tube has not been used for the past 2 months and was removed 11/27/18; weight is stable at this time DENTITION: WFL; Underwent dental work prior to chemoradiation (single tooth extraction), recently followed up w/ dentist, no dental work recommended MENTAL STATUS: WNL RESPIRATORY STATUS: O2 via room air PREVIOUS MODIFIED BARIUM SWALLOW STUDY: 07/19/2018 mild oropharyngeal dysphagia (R13.12) regular/thin diet recommended w/ the following aspiration precautions - reduced bolus volume, reduced rate of intake, seated upright with slight anterior lean during PO intake, ensure solid textures are sufficiently masticated REASON FOR REFERRAL: Patient is a 58-year-old male referred for a modified barium swallow (MBS) study to objectively assess the Patients oropharyngeal swallow function under fluoroscopy secondary to clinical stage I (cT2 N1 M0) 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 The patient received definitive chemoradiation therapy with concurrent HD cisplatin from 07/17/18 08/30/19. A repeat modified barium swallow study was recommended to be completed within 1-2 months post chemoradiation to further assess the Patients oropharyngeal swallow function and identify any post radiation changes in the oropharyngeal physiology, as the patient is at higher risk for continual changes and possible decline in swallow functioning and increase in dysphagia severity throughout the chemoradiation intervention cycle. The patient reports very minimal odynophagia w/ deglutition, no pain otherwise. Expectorated thick mucous in the a.m. w/ significant improvement/reduction over the past 3 weeks. Xerostomia and altered sense of taste persists. Reports improved appetite w/ marijuana use. MEDICAL HISTORY: Squamous cell carcinoma involving the right tonsil and ipsilateral lymph nodes status post chemoradiation right neck mass excision (05/23/18) with resulting dysphagia requiring alternative means of nutrition via PEG tube (07/13/2018); status post hand surgery (1997), status post abdominal and right inguinal hernia repair (1997, 2001, 2008), former smoker. STUDY FINDINGS: Patient participated in a Modified Barium Swallow (MBS) study on 11/27/2018. Dr. Ramires was the radiologist present for this evaluation. This study was recorded in the lateral view and images were sent to PACs for storage. The following consistencies were presented to this patient for analysis of oropharyngeal swallow function: thin liquids, pudding, and a regular textured [place] [employer] cookie. Results of the MBS are as follows: PENETRATION / ASPIRATION SCALE (THAPA): 1 = does not enter airway 2 = enters airway/above vocal folds/ejected 3 = enters airway/above vocal folds/not ejected 4 = enters airway/contacts vocal folds/ejected 5 = enters airway/contacts vocal folds/not ejected 6 = enters airway/below vocal folds/ejected 7 = enters airway/below vocal folds/not ejected despite effort 8 = enters airway/below vocal folds/no effort PENETRATION / ASPIRATION SCALE (SCORE): 1. Thin liquid - 5 mL tsp.: 1 2. Thin liquid - 5 mL tsp.: 1 3. Thin liquids via cup (single sip): 1 4. Thin liquids via cup (sequential swallows): 2 5. Pudding via spoon: 1 6.Regular textured cookie: 1 7. Thin liquids via cup (single sip): 1 IMPRESSION: DIAGNOSIS: mild oropharyngeal dysphagia (R13.12) ORAL PHASE CHARACTERIZED BY: LABIAL SEAL: no labial escape TONGUE CONTROL DURING BOLUS MANIPULATION: posterior escape of less than half of bolus BOLUS PREPARATION / MASTICATION: timely and efficient chewing and mashing BOLUS TRANSPORT / LINGUAL MOTION: brisk tongue motion ORAL RESIDUE: trace residue lining oral structures PHARYNGEAL PHASE CHARACTERIZED BY: INITIATION OF PHARYNGEAL SWALLOW: bolus head in valleculae at first hyoid excursion SOFT PALATE ELEVATION: no bolus between soft palate and pharyngeal wall LARYNGEAL ELEVATION: complete superior movement of thyroid cartilage with complete approximation of arytenoids cartilage to epiglottic petiole ANTERIOR HYOID EXCURSION: complete anterior movement EPIGLOTTIC MOVEMENT: complete epiglottic inversion LARYNGEAL VESTIBULE CLOSURE AT HEIGHT OF SWALLOW: complete laryngeal vestibule closure with no air/contrast in laryngeal vestibule PHARYNGEAL STRIPPING WAVE: pharyngeal stripping wave present / diminished PHARYNGOESOPHAGEAL SEGMENT OPENING: partial distension and partial duration; partial obstruction of flow TONGUE BASE RETRACTION: trace column of contrast between tongue base and posterior pharyngeal wall PHARYNGEAL RESIDUE: collection of residue within or on pharyngeal structures ESOPHAGEAL PHASE CHARACTERIZED BY: ESOPHAGEAL BOLUS CLEARANCE IN THE UPRIGHT POSITION: could not view EFFECTS OF TREATMENT STRATEGIES ATTEMPTED: Limiting liquid bolus volume = effective Double swallow = effective INTERPRETATION OF RESULTS: Patient presents with mild oropharyngeal dysphagia (R13.12) secondary to clinical stage I (cT2 N1 M0) 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 The oral phase is marked my mild retention of contrast on the lingual surface post deglutition d/t dry oral mucosa necessitating use of a second swallow (independently initiated as needed). Pharyngeal phase is marked by premature posterior pharyngeal bolus spillage to the valleculae and occasionally the pyriforms prior to swallow onset w/ laryngeal vestibule penetration occurring w/ large volume sequential swallows of this liquid. Limiting liquid bolus volume to small sips, one at a time was effective to eliminate penetration. No aspiration evidenced under fluoroscopy. Mildly reduced tongue base retraction and pharyngeal contraction/stripping wave noted w/ slight decreased in PES opening w/ trace contrast retention appreciated along tongue base and PES. Pharyngeal phase overall functional. RECOMMENDATIONS: DIET TEXTURE RECOMMENDATIONS: Will recommend a regular textured, thin liquid diet. COMPENSATORY STRATEGIES RECOMMENDED: Reduced liquid bolus volume, reduced rate of intake, seated upright for all PO intake, double swallow as needed to clear oral/pharyngeal residue No further direct skilled ST intervention for management of dysphagia is recommended at this time. Strongly encourage continued completion of home based prophylactic swallowing exercise program to promote the highest level of preserved post-irradiation swallow functioning. Encouraged to follow up w/ referring physician for additional skilled ST intervention if changes in swallow function are noted. ADDITIONAL COMMENTS/RECOMMENDATIONS:Results and recommendations were discussed with the Patient immediately following MBS completion, with the Patient verbalizing understanding and agreement with all recommendations and education provided. IMAGE COUNT: [id number]
--- NOTE | 2018-11-27 13:30 | RAD_ITS ---
STUDY: SWALLOWING STUDY REASON FOR EXAM: Male, 58 years old. Dysphagia TECHNIQUE: The examination was performed with Speech Pathology in attendance. Under fluoroscopic observation, the patient ingested thin barium, thick barium, barium pudding, and barium coated cracker. FLUOROSCOPY TIME: 1:12 minutes/seconds RADIOLOGIST INVOLVEMENT: Radiologist was present and providing direct supervision. COMPARISON: None. FINDINGS: The following was observed during swallowing of the various mixtures of barium: Thin Barium: There was intermittent laryngeal penetration. Thick Barium: There was no evidence of aspiration or laryngeal penetration. Barium Pudding: There was no evidence of aspiration or laryngeal penetration. Barium Coated Cracker: There was no evidence of aspiration or laryngeal penetration. RAD/Swallowing Function w/Video IMPRESSION: Intermittent laryngeal penetration noted with thin liquid swallows. The swallow study findings were discussed with the patient by the speech pathologist at the conclusion of the examination. Please see speech pathology report for more information and recommendations. The procedure was performed by speech therapist under the direct supervision of myself Electronically Signed: Marino Ramires, at 16:06 EDT Tel , Service support ,
== END ==
PROVIDERS: Referring Provider Student in an Organized Health Care Education/Training Program; Visit Provider Student in an Organized Health Care Education/Training Program
DX: C10.9 Malignant neoplasm of oropharynx, unspecified (principal)
CPT/HCPCS: 36415; 74230; 78815; 80053; 85025; 92611; A9552

== ENCOUNTER 2018-11-27 13:36 | Outpatient (RCR) | payer MEDICAID, SELFPAY ==
[2018-07-03 13:42] VITALS: BMI 26.2
[2018-08-10 10:20] VITALS: BMI 24.7
== END 2018-11-27 23:59 | disposition home or self-care (01) ==
LOC: NS 13:36
PROVIDERS: Visit Provider Internal Medicine Medical Oncology
DX: C10.9 Malignant neoplasm of oropharynx, unspecified (principal); Z71.3 Dietary counseling and surveillance
CPT/HCPCS: 97803